=== PATIENT | female | born 1965 | race Caucasian/White ===

== ENCOUNTER 2016-10-18 03:07 | Emergency (ER) | payer OTHER ==
[~2016-10-18] VITALS: Ht 172.7 cm; Wt 154.6 kg
[2016-10-18 03:08] VITALS: BP 85/37; PULSE 111; RESP 20; O2SAT 95
--- NOTE | 2016-10-18 03:10 | ED.REPORT ---
HPI-General Illness Date of Service Oct 18, 2016 ED Provider: MD Jonah This is a 51 year old female with a history of diverticulosis brought to the ED by EMS complaining of sudden onset abdominal pain that began 6 hours ago. Pt developed diffuse abdominal cramping. She also had an episode of uncontrollable shaking chills. Reports feeling generally unwell in the last 1.5 weeks, she took previously prescribed Keflex for presumed UTI, has taken Keflex for 2 days. Reports significant dietary changes in last 2 weeks, not consuming fats, sugar, or salt. Denies constipation, diarrhea, nausea, vomiting, headache, or dysuria. She takes no daily meds except occasional ibuprofen. She has no other significant medical history. Nursing Notes Stated Complaint: ABDOMINAL PAIN Chief Complaint: Female Abdominal Pain Nursing Notes Reviewed: Yes Allergies: Uncoded Allergies: SULFA (Allergy, Unknown, 10/18/16) General Time Seen by MD: 03:10 Chief Complaint Other Hx Obtained From: Patient Arrived By: Ambulance Sudden in Onset?: Yes Onset Occurred: 5 - 8 hours ago Symptom Duration: Since onset Severity: Current: Moderate Pertinent Negative: Pt denies other symptoms Recent Healthcare: No recent doctor visit, No recent hospitalization Similar Sx Previous: No Past Medical History Past Medical History Notes: Diverticulosis only no other significant medical history Past Medical History Hx diverticulosis Past Surgical History Denies Ambulatory Status Independent Review of Systems Full Review of Systems Constitutional: Reports: Chills, Denies: Fever Respiratory: Denies: Non-productive cough GI: Reports: Abdominal pain, Denies: Constipation, Diarrhea, Nausea, Vomiting Neurologic: Denies: Headache Complete sys rev & neg: except as marked. Physical Exam Vital Signs Vital Signs Date Time Temp Pulse Resp B/P Pulse Ox O2 Delivery O2 Flow Rate FiO2 10/18/16 07:25 37 92 19 100/51 97 Room Air 10/18/16 06:23 94 17 114/46 95 Room Air 10/18/16 03:08 37.3 111 20 85/37 95 Room Air Initial VS: Reviewed Head / Eyes: Atraumatic, Normocephalic, PERRL ENT: Mucous membranes moist, Conjunctiva normal, No scleral icterus Neck: Supple, Non-tender, Full range of motion Respiratory: Breath sounds normal, Clear to auscultation, No respiratory distress Cardiovascular: Regular rate & rhythm, Heart sounds normal, Intact distal pulses Extremities: Vascular intact, Neuro intact, No swelling, No tenderness Skin: Warm, Dry, No cyanosis Neurologic: Alert, Oriented, Nonfocal Psychiatric: Mood/affect normal, Behavior normal, Normal thought content General/Constitutional: Awake, Alert Distress / Hydration: Positive: Distress moderate Appearance / Presentation: Positive: Obese Tenderness/Guarding/Rebound: Positive: Tender diffuse Interpretation & Diagnostics Lab Results Interpretation Result Diagram: 10/18/16 0340 10/18/16 0340 Test 10/18/16 00:00 10/18/16 03:40 Urine Color Dark yellow (YELLOW) Urine Appearance Cloudy (CLEAR,HAZY) Urine pH 5.5 (5.0-8.0) Urine Specific [place] 1.030 (1.003-1.035) Urine Protein 100mg/dL (NEG,TRACE) Urine Glucose (UA) Negativemg/dL (NEGATIVE) Urine Ketones Negativemg/dL (NEGATIVE) Urine Occult Blood Moderate (NEGATIVE) Urine Nitrite Negative (NEGATIVE) Urine Bilirubin Small (NEGATIVE) Urine Ictotest Positive (Negative) Urine Urobilinogen Normalmg/dL (NORMAL) Urine Leukocyte Esterase Negative (NEGATIVE) Urine RBC 3-10/hpf (0-2) Urine WBC 6-10/hpf (0-5) Urine Epithelial Cells Many/hpf (NONE-MOD) Urine Crystals None seen (NONE SEEN) Urine Bacteria Moderate/hpf (NONE-FEW) Urine Hyaline Casts None/lpf (NONE) Urine Granular Casts None seen (NONE SEEN) Urine Waxy Casts None seen (NONE SEEN) Urine Red Blood Cell Casts None seen (NONE SEEN) Urine White Blood Cell Casts None seen (NONE SEEN) Urine Mucus Present (None Seen) Urine Trichomonas None seen (NONE SEEN) Urine Yeast None (NONE SEEN) Urine Culture Reflexed Indicated White Blood Count 20.3th/mm3 (3.8-10.1) Red Blood Count 4.49mil/mm3 (3.90-5.20) Hemoglobin 12.7g/dL (12.0-15.6) Hematocrit 39.2% (35.0-46.0) Mean Corpuscular Volume 87.3fL (81-100) Mean Corpuscular Hemoglobin 28.3pg (27.0-35.0) Mean Corpuscular Hemoglobin Concent 32.4% (32.0-37.0) Red Cell Distribution Width 13.9% (12.3-15.4) Platelet Count 452bil/L (150-400) Neutrophils (%) (Auto) 88.4% (40-74) Lymphocytes (%) (Auto) 4.6% (14-46) Monocytes (%) (Auto) 6.0% (4-12) Eosinophils (%) (Auto) 0.1% (0-5) Basophils (%) (Auto) 0.1% (0-3) Prothrombin Time 12.0sec (8.1-12.5) Prothromb Time International Ratio 1.12ratio Sodium Level 135mEq/L (134-144) Potassium Level 3.9mEq/L (3.5-5.2) Chloride Level 98mEq/L (97-108) Carbon Dioxide Level 21mmol/L (18-29) Blood Urea Nitrogen 14mg/dL (6-24) Creatinine 1.86mg/dL (0.57-1.00) Estimat Glomerular Filtration Rate 41mL/min (>59) Glucose Level 126mg/dL (60-99) Lactic Acid Level 2.4mmol/L (0.4-2.0) Calcium Level 9.1mg/dL (8.5-10.1) Magnesium Level 1.6mg/dL (1.6-2.6) Total Bilirubin 1.3mg/dL (0.0-1.2) Aspartate Amino Transf (AST/SGOT) 32U/L (0-50) Alanine Aminotransferase (ALT/SGPT) 41U/L (0-32) Alkaline Phosphatase 101U/L (25-150) Total Protein 7.5g/dL (6.4-8.4) Albumin 3.4g/dL (3.4-5.0) Lipase 9U/L (13-60) CT Abd / Pelvis Interpretation There is sigmoid diverticulitis, with evidence of performation and free intraperitoneal gas. There is also a 10 x 10 x 8 cm pericolonic abscess within the upper pelvis. Interpretation / Wet Read by: Discussed w radiologist Re-Eval/Medical Decision Med Decision/Clinical Course 51-year-old with prior diverticulosis and diverticulitis presents now with acute onset abdominal pain of high severity, tachycardia, and evidence on CT of a large diverticular abscess with perforation and free air. Consulted with our surgeon and anesthesiologist here, feel that she would be more safely managed at a center with bariatric capabilities. Consultation to [facility] resulted in acceptance for the colorectal service and coater hand service. [facility] arranged. BP has improved with fluid although remains variable between about 100 and 120. She is transported in critical and improved condition. Time of Eval: 05:14 Re-Evaluation/Progress Note: Discussed lab results and need for admission, all questions addressed. Consultation #1: Referral / Consult Name: Walter Jacobson MD Consulted With: Surgeon Call Returned at: 05:14 Note: recommends transfer Consultation #2: Referral / Consult Name: John Cohn MD Consulted With: Anesthesia Call Returned at: 05:24 Agricultural Equipment Test Engineer: Agrees with eval, Agrees with plan Counseled Regarding: Diagnosis, Lab results, Need for follow-up, Need for transfer Discharge & Departure Departure Notes Acceptance by Dr. Mejia, coater hand at [facility]. Await determination by [facility] for suitability for air transport. Primary Impression: Diverticulitis Diverticulitis complication: with perforation and abscess Additional Impressions: Pneumoperitoneum Sepsis Diverticular disease of intestine with perforation and abscess Disposition: Transfer, Acute Care Facility (Health System) Discharge Condition All VS Reviewed: Yes Condition: Critical Scribe Attestation Portions of this note were transcribed by Lashae Fierro. I, Dr. Mckenzie personally performed the history, physical exam and medical decision-making; I reviewed and confirmed the accuracy of the information in the transcribed note. Signed by: chioma Manriquez. 10/17/2016, 04:00. Zeke Mckenzie MD Oct 18, 2016 03:10 LASHAE FIERRO Oct 18, 2016 03:47
[2016-10-18] MEDS ORDERED: 0.9% Sodium Chloride 1,000 ML IV ONE ×2 (03:39→04:40)
[2016-10-18] MEDS ORDERED: Pantoprazole 4 mg/mL 10 mL Inj IVPUSH ONE (03:40)
[2016-10-18] MEDS ORDERED: Ondansetron 2 mg/mL 2 mL Inj IVPUSH ONE (03:40)
[2016-10-18] MEDS: HYDROmorphone 1 mg/mL Inj IVPUSH PRN ×2 (03:53→06:15)
[2016-10-18 04:02] LABS: BASOPHILS % (AUTO) 0.1 % (0-3); Platelet Count 452 bil/L (150-400)
[2016-10-18 04:08] LABS: EOSINOPHILS % (AUTO) 0.1 % (0-5); Mean Corpuscular Hemoglobin 28.3 pg (27.0-35.0); Mean Corpuscular Volume 87.3 fL (81-100); NEUTROPHILS % (AUTO) 88.4 % (40-74)
[2016-10-18 04:23] LABS: INR 1.12 ratio
[2016-10-18 04:25] LABS: Magnesium 1.6 mg/dL (1.6-2.6)
[2016-10-18] MEDS ORDERED: Piperacillin-Tazo 3.375 Gm Inj 3.375 GM in Dextrose 5% Minibag Plus 50 ML IV ONE (05:10)
[2016-10-18] MEDS: 0.9% Sodium Chloride 1,000 ML IV SCH ×3 (05:32→07:46)
[2016-10-18 05:55] LABS: APPEARANCE,URINE CLOUDY (CLEAR,HAZY); COLOR,URINE DARK YELLOW (YELLOW); OCCULT BLOOD,URINE MODERATE (NEGATIVE); PH,URINE 5.5 (5.0-8.0); UROBILINOGEN,URINE NORMAL (NORMAL)
[2016-10-18 05:56] LABS: ICTOTEST,URINE POSITIVE (Negative)
[2016-10-18 06:23] VITALS: BP 114/46; PULSE 94; RESP 17; O2SAT 95
[2016-10-18 07:25] VITALS: BP 100/51; PULSE 92; RESP 19; O2SAT 97
[2016-10-18] MEDS ORDERED: HYDROmorphone 1 mg/mL Inj IVPUSH PRN (07:30)
--- NOTE | 2016-10-18 08:05 | DRSVH ---
PROCEDURE: CT ABDOMEN AND PELVIS WITH CONTRAST ([id number]) INDICATIONS: abdo pain TECHNIQUE: After the administration of intravenous contrast, 5 mm thick sections acquired from the diaphragm to the symphysis. 5 mm coronal and sagittal reformats were acquired. For radiation dose reduction, the following was used: automated exposure control, adjustment of mA and/or kV according to patient siz e. COMPARISON: None. FINDINGS: Image quality: Excellent. ABDOMEN: Lung bases: Lung bases are clear. Heart size is normal. Solid organs: Liver and spleen are normal in size and enhancement. Gallbladder appears normal. Dickson iary system is non dilated. Pancreas enhances normally. No adrenal nodules. Kidneys demonstrate no rmal size and enhancement, without hydronephrosis. Peritoneum and bowel: Bowel loops demonstrate normal wall thickness and caliber. There is both free fluid and air within the peritoneal space, and emanating from the pelvis. Nodes and vessels: No retroperitoneal or mesenteric adenopathy by size criteria. Aorta and inferior vena cava are normal in size. Miscellaneous: No ventral hernias. PELVIS: Genitourinary: Bladder wall thickness is normal. Note is made of mild heterogeneity of the soft tis sues at the cervix area, potentially nabothian cysts but possibly mass related. Miscellaneous: No inguinal hernias or adenopathy. There is prominent diverticulitis involving the s igmoid colon, and scattered interloop fluid collections ranging in size from 3-6 cm. The exact diffe rentiation between small bowel and interloop fluid collections is difficult given the absence of oral contrast. There also is a central large presumed abscess and possibly contained bowel perforation m easuring up to 8.6 x 11.9 cm, surrounded by large and small bowel loops (centered on series 2 image 7 7). Bones: No suspicious bony lesions. No vertebral body compression fractures. IMPRESSION: Acute diverticulitis, multiple scattered interloop fluid collections within the pelvis, a nd also what appears to be a large abscess surrounded by large and small bowel at the central portion of the pelvis measuring up to 8.6 x 1.9 cm. The internal content appears to be viscous given the re tention of gas bubbles at all levels throughout. Surgical consultation is recommended. Additionally, there are scattered small fluid collections within the abdomen and free air scattered w ithin the abdomen and pelvis. At the cervix region there is an area of low attenuation measuring approximately 1.8 cm in maximal di mension centrally positioned possibly representing nabothian cysts but also possibly a manifestation of underlying neoplasm. Pelvic ultrasound is recommended to further assess this area more accurately after the current acute illness is managed. Dictated by: Roverto Turner M.D. on 10/18/2016 at 8:03 Approved by: Roverto Turner M.D. on 10/18/2016 at 8:03
[2016-10-18 08:36] VITALS: BP 135/90; PULSE 109; RESP 22; O2SAT 100
[2016-10-18 08:46] VITALS: BP 135/90; PULSE 109; RESP 22; O2SAT 100
== END 2016-10-18 08:43 | disposition short-term general hospital (02) ==
LOC: EDBD 03:07 → SED 03:07
DX: K57.20 Diverticulitis of large intestine with perforation and abscess without bleeding (principal); A41.9 Sepsis, unspecified organism; K66.8 Other specified disorders of peritoneum
CPT/HCPCS: 36415; 51702; 74177; 80053; 81000; 83605; 83690; 83735; 85025; 85610; 87086; 87088; 87186; 96361; 96374; 96375; 96376; 99291; J1170; J2405; J2543; J7030; Q9967